=== PATIENT | female | born 1965 | race Caucasian/White ===

== ENCOUNTER 2022-07-04 01:29 | Emergency (ER) | payer OTHER, SELFPAY ==
[2022-07-04] VITALS (10 sets, daily range): BP systolic 114–129; BP diastolic 60–79; PULSE 68–78; RESP 16–36; TEMP 36.5; O2SAT 96–98; BMI 32.1
--- NOTE | 2022-07-04 01:43 | ED_ITS ---
HPI - Chest Pain General Chief Complaint: Chest Pain Stated Complaint: CHEST PAIN Time Seen by Provider: 07/04/22 01:35 Source: patient Mode of arrival: Ambulatory Limitations: no limitations History of Present Illness HPI narrative: This is a 56-year-old female with complaint of chest pain which he describes as substernal without any radiation. States it woke her up from sleep about 12:45 a.m. patient denies any radiation, she does not have any symptoms in her neck, back arm or abdomen. She states she would similar symptoms in 2020 was told it was a panic attack she did follow-up with Cardiology and had a stress test, and echo through [facility] which were negative. Patient states she had been given sublingual nitro so at 1:00 a.m. and 1:10 a.m. she took sublingual nitro which did not change her symptoms. She denies shortness of breath, no diaphoresis, she states her heart rate she got was a little high at home. She denies any swelling of her extremities. No lightheadedness or pas sing out. No nausea, no vomiting, no diarrhea constipation, no urinary symptoms. She states at max it was 6/10 is currently 4/10. Nothing seems to worsen or alleviate it. She does not appreciate any funny taste in the back of her mouth. Patient states she is on bio identical hormones including testosterone, progesterone and estrogen as well as a thyroid supplement. She denies any prior surgeries except for vein surgery which she describes and sounds similar to vein stripping. No tobacco, occasional alcohol she did have a green Neetu a last night. No illicit. She denies any cardiac, embolic or vascular history in her family. Her primary care was at [facility] she is currently transitioning to a new primary care and has an appointment the end of the month. She presents with her . She states pain is still present. Related Data Allergies Allergy/AdvReac Type Severity Reaction Status Date / Time butorphanol [From Stadol] Allergy Unknown Verified 07/04/22 02:15 diazepam [From Valium] Allergy Unknown Verified 07/04/22 02:16 Review of Systems Review of Systems ROS Unobtainable: All systems reviewed & are unremarkable except as noted in HPI and below Patient History Social History Smoking Status: Never smoker Exam Narrative Exam Narrative: GENERAL: Alert and oriented x three, well-nourished female in mild distress. HEENT: Head normocephalic, atraumatic, EOMI, pupils reactive, face symmetric, moist mucous membranes NECK: Supple, full range of motion CARDIOVASCULAR: Regular rate and rhythm without murmurs, rubs or gallops. No JVD. No swelling bilateral lower extremities. Pulses equal bilateral upper extremities. No reproducible chest pain with palpation. RESPIRATORY: Breath sounds equal bilaterally, no wheezes rales or rhonchi. No tachypnea, no accessory muscle use. Speaks in full sentences. ABDOMEN: Soft, nontender. Normoactive bowel sounds all 4 quadrants. No guarding or rebound, rigidity, no mass : No CVA tenderness EXTREMITIES: Normal range of motion, no clubbing or edema. Neurovascularly intact NEUROLOGICAL: Cranial nerves II through XII grossly intact. Moving all extremities SKIN: Warm, dry, no petechiae, no rashes or lesions. Initial Vital Signs Initial Vital Signs: Vital Signs Temperature 97.7 F 07/04/22 01:37 Pulse Rate 78 07/04/22 01:37 Respiratory Rate 18 07/04/22 01:37 Blood Pressure 114/74 07/04/22 01:37 Pulse Oximetry 97 07/04/22 01:37 Oxygen Delivery Method 07/04/22 01:37 Scores HEART Score Heart Score history: Moderately Suspicious Heart Score EKG: Non-Specific repolarization disturbance Heart Score Age: 45-64 years old Heart Score risk factors: No known risk factors Heart Score troponin: < or = to normal limit Heart Score Total: 3 Course Orders Ordered: ED Orders 07/04/22 01:45 Complete Blood Count AUTO DIFF Stat Comprehensive Metabolic Panel Stat D Dimer Stat Lipase Stat NT-proBNP (BNP-Adult 18+) Stat Partial Thromboplastin Time Stat Prothrombin Time INR Stat Troponin & CK Cardiac Panel Stat 07/04/22 02:00 XR chest 1V Stat 07/04/22 02:32 Covid-19 + FLU A/B + RSV - PCR Stat 07/04/22 03:45 Trop I [Troponin I] Stat Discontinued Medications Al Hydrox/Mg Hydrox/Simethicone 20 ml/ Lidocaine HCl 15 ml 0 ml PO NOW ONE Stop: 07/04/22 02:01 Last Admin: 07/04/22 02:09 Dose: 35 ml Documented By: KRISTYN Ketorolac Tromethamine (Ketorolac 30 Mg/Ml Vial) 15 mg IV NOW ONE Stop: 07/04/22 03:34 Last Admin: 07/04/22 03:38 Dose: 15 mg Documented By: KRISTYN Reevaluation(s) Reevaluation #1: No improvement in pain after GI cocktail. Patient states nitro had not been helpful. She states she does not typically handle narcotics well, she had stayed all which he states made her hallucinate and vomit. She had Valium at 1 point which she states made her cry uncontrollably. Time: 03:34 Vital Signs Vital signs: Vital Signs - 8 hr 07/04/22 01:37 07/04/22 01:58 07/04/22 02:00 Temperature 97.7 F Pulse Rate 78 72 73 Respiratory Rate 18 26 H 36 H Blood Pressure 114/74 Pulse Oximetry 97 98 97 Oxygen Delivery Method Room Air 07/04/22 03:56 07/04/22 02:03 07/04/22 02:03 Temperature Pulse Rate 70 Respiratory Rate 20 19 Blood Pressure 117/61 Pulse Oximetry 97 Oxygen Delivery Method 07/04/22 02:30 07/04/22 02:31 07/04/22 02:31 Temperature Pulse Rate 68 70 Respiratory Rate 24 18 Blood Pressure 119/64 Pulse Oximetry 98 98 Oxygen Delivery Method 07/04/22 03:00 07/04/22 03:00 07/04/22 03:30 Temperature Pulse Rate 71 Respiratory Rate 28 H Blood Pressure 122/64 129/79 Pulse Oximetry 97 Oxygen Delivery Method 07/04/22 03:30 07/04/22 04:00 07/04/22 04:00 Temperature Pulse Rate 68 69 Respiratory Rate 16 Blood Pressure 122/60 Pulse Oximetry 97 96 Oxygen Delivery Method MDM - Chest Pain Lab Data Result diagrams: 07/04/22 01:45 07/04/22 01:45 Labs: Lab Results 07/04/22 07/04/22 07/04/22 Range/Units 01:45 01:45 01:45 WBC 9.3 (4.5-11.0) X10^3/uL RBC 4.44 (4.0-5.2) X10^6/uL Hgb 13.3 (12.0-16.0) g/dL Hct 40.5 (36-46) % MCV 91.1 (80-100) fL MCH 29.9 (26-34) PG MCHC 32.8 (30-36) % RDW 13.6 (11.6-14.8) % Plt Count 335 (150-400) X10^3/uL Neut % (Auto) 67.1 (50-75) % Lymph % (Auto) 22.6 L (25-40) % Will[place] % (Auto) 9.1 (3-14) % Eos % (Auto) 0.5 L (2-4) % Baso % (Auto) 0.7 (0-2) % Neut # (Auto) 6200 (6626-2137) /uL Lymph # (Auto) 2100 (0875-0118) /uL Willacy # (Auto) 800 (0-900) /uL Eos # (Auto) 0 (0-450) /uL Baso # (Auto) 100 (0-100) /uL PT 12.3 (10.1-12.7) SECONDS INR 1.1 (0.9-1.3) APTT 32 (26-36) SECONDS D-Dimer 372 (<500) ng/ml Sodium 138 (137-145) mmol/L Potassium 4.0 (3.4-5.1) mmol/L Chloride 104 (98-107) mmol/L Carbon Dioxide 24 (22-32) mmol/L BUN 11 (7-17) mg/dL Creatinine 0.86 (0.52-1.04) mg/dL Estimated GFR > 60 (>60) mL/min BUN/Creatinine Ratio 12.8 (6-22) Glucose 110 H (70-100) mg/dL Calcium 8.3 L (8.4-10.2) mg/dL Total Bilirubin 0.6 (0.2-1.3) mg/dL AST 21 (14-36) IU/L ALT 22 (<35) IU/L Alkaline Phosphatase 77 (38-126) U/L Total Creatine Kinase 41 (30-135) U/L CK-MB (CK-2) TNP CK-MB (CK-2) Rel Index TNP Troponin I < 0.012 (0.01-0.034) ng/mL NT-Pro-B Natriuret Pep (<125) pg/mL Total Protein 7.6 (6.3-8.2) g/dL Albumin 4.1 (3.5-5.0) g/dL Globulin 3.5 (1.7-4.1) g/dL Albumin/Globulin Ratio 1.2 (1.0-2.8) Lipase 81 (23-300) U/L SARS-CoV-2 (PCR) (Negative) Influenza A (RT-PCR) (NEGATIVE) Influenza B (RT-PCR) (NEGATIVE) RSV (PCR) (Negative) 07/04/22 07/04/22 07/04/22 Range/Units 01:45 02:32 03:45 WBC (4.5-11.0) X10^3/uL RBC (4.0-5.2) X10^6/uL Hgb (12.0-16.0) g/dL Hct (36-46) % MCV (80-100) fL MCH (26-34) PG MCHC (30-36) % RDW (11.6-14.8) % Plt Count (150-400) X10^3/uL Neut % (Auto) (50-75) % Lymph % (Auto) (25-40) % Willacy % (Auto) (3-14) % Eos % (Auto) (2-4) % Baso % (Auto) (0-2) % Neut # (Auto) (0229-5882) /uL Lymph # (Auto) (5305-3918) /uL Willacy # (Auto) (0-900) /uL Eos # (Auto) (0-450) /uL Baso # (Auto) (0-100) /uL PT (10.1-12.7) SECONDS INR (0.9-1.3) APTT (26-36) SECONDS D-Dimer (<500) ng/ml Sodium (137-145) mmol/L Potassium (3.4-5.1) mmol/L Chloride (98-107) mmol/L Carbon Dioxide (22-32) mmol/L BUN (7-17) mg/dL Creatinine (0.52-1.04) mg/dL Estimated GFR (>60) mL/min BUN/Creatinine Ratio (6-22) Glucose (70-100) mg/dL Calcium (8.4-10.2) mg/dL Total Bilirubin (0.2-1.3) mg/dL AST (14-36) IU/L ALT (<35) IU/L Alkaline Phosphatase (38-126) U/L Total Creatine Kinase (30-135) U/L CK-MB (CK-2) CK-MB (CK-2) Rel Index Troponin I < 0.012 (0.01-0.034) ng/mL NT-Pro-B Natriuret Pep 41 (<125) pg/mL Total Protein (6.3-8.2) g/dL Albumin (3.5-5.0) g/dL Globulin (1.7-4.1) g/dL Albumin/Globulin Ratio (1.0-2.8) Lipase (23-300) U/L SARS-CoV-2 (PCR) Negative (Negative) Influenza A (RT-PCR) Flu a negative (NEGATIVE) Influenza B (RT-PCR) Flu b negative (NEGATIVE) RSV (PCR) Negative (Negative) Imaging Data Chest x-ray: Radiologist's Impression: no acute cardiopulmonary disease demonstrated. ECG Data Attestation: I personally reviewed and interpreted this ECG as follows: Prior ECG tracings: not available for review Interpretation: Sinus rhythm rate of 76 [place] 158 QRS is [address]TC [address] No acute [address] elevation depression noted. Patient does not have prior for comparison. EKG2. Sinus rhythm rate of 66 [place] 172 QRS is 76 and QTC of 429. No acute ST elevation. [facility] Narrative Medical decision making narrative: This is a 56-year-old female who presents with complaint substernal chest pain that awoke her from sleep. Patient states she tried nitro sublingual x2 with no improvement, she had this left over after having similar episode in 2019, she had stress testing and TT E at [facility] which was negative according to the patient. Patient chest x-ray is negative, CBC, CMP lipase and initial troponin are all negative. Patient is on estrogen D-dimer was included and is negative at 372, patient is not tachycardic, her oxygen is normal making pulmonary emboli much less likely. COVID/influenza and RSV are negative. Patient had GI cocktail which was not helpful, she notes that she does not tolerate narcotics or benzodiazepines well at all. Dose of Toradol was ordered. Repeat troponin is negative. EKG does not show dynamic changes. Patient's symptoms improved significantly after Toradol. Offered observation to the patient, she politely declines but discussed I would recommend having short-term follow-up. She has established with a new primary care but does not recall their name. I asked that they call 1st thing in the morning or to call the cardiology team she was following with in 2019 for further evaluation and workup. We discussed return precautions all questions answered. Discharge Plan Departure Patient Disposition: Home Clinical Impression: Chest pain Instructions: DI for Chest Pain Activity Restrictions/Additional Instructions: Please follow-up with your primary care team to discuss repeat stress testing or additional workup. Please return for new or worsening symptoms, increasing chest pain, shortness of breath, passing out, new swelling in your extremities, coughing up blood, black or bloody stools, persistent vomiting or other new or concerning changes. Stand Alone Forms: Patient Portal/API
--- NOTE | 2022-07-04 02:00 | DI.RAD.S_ITS ---
PROCEDURE: XR CHEST 1V INDICATIONS: chest pain TECHNIQUE: One view of the chest was acquired. COMPARISON: None. FINDINGS: Surgical changes and devices: None. Lungs and pleura: Lungs are clear. No pleural effusions or pneumothorax. Mediastinum: Mediastinal contours appear normal. Heart size is normal. Bones and chest wall: No suspicious bony lesions. Overlying soft tissues appear unremarkable. IMPRESSION: No acute cardiopulmonary abnormality. This report is concordant with the overnight preliminary interpretation. Dictated by: Reg Moses M.D. on 07/04/2022 at 8:01 Approved by: Reg Moses M.D. on 07/04/2022 at 8:01
[2022-07-04] MEDS: MAG HYDROX/ALUMINUM/SIMETH SUS 20 ML, LIDOCAINE VISCOUS 2% 15 ML PO (02:09)
[2022-07-04 02:13] LABS: Add Manual Diff / Slide Review NO; Basophils Absolute Auto 100 /uL (0-100); Basophils Percent Auto 0.7 % (0-2); Eosinophils Absolute Auto 0 /uL (0-450); Eosinophils Percent Auto 0.5 % (2-4); Hematocrit 40.5 % (36-46); Hemoglobin 13.3 g/dL (12.0-16.0); INR 1.1 (0.9-1.3); Lymphocytes Absolute Auto 2100 /uL (1100-4500); Lymphocytes Percent Auto 22.6 % (25-40); Mean Corpuscular HGB Conc 32.8 % (30-36); Mean Corpuscular Hemoglobin 29.9 PG (26-34); Mean Corpuscular Volume 91.1 fL (80-100); Monocytes Absolute Auto 800 /uL (0-900); Monocytes Percent Auto 9.1 % (3-14); Neutrophils Absolute Auto 6200 /uL (1500-7000); Neutrophils Percent Auto 67.1 % (50-75); Platelet Count 335 X10^3/uL (150-400); Prothrombin Time 12.3 SECONDS (10.1-12.7); Red Blood Cell Count 4.44 X10^6/uL (4.0-5.2); Red Cell Distribution Width 13.6 % (11.6-14.8); White Blood Cell Count 9.3 X10^3/uL (4.5-11.0)
[2022-07-04 02:15] LABS: D Dimer 372 ng/ml (<500)
[2022-07-04 02:16] LABS: PTT Partial Thromboplastin Tim 32 SECONDS (26-36)
[2022-07-04 02:18] LABS: Alanine Aminotransferase 22 IU/L (<35); Albumin 4.1 g/dL (3.5-5.0); Albumin Globulin Ratio 1.2 (1.0-2.8); Alkaline Phosphatase 77 U/L (38-126); Aspartate Aminotransferase 21 IU/L (14-36); BUN Creatinine Ratio 12.8 (6-22); Bilirubin Total 0.6 mg/dL (0.2-1.3); Blood Urea Nitrogen 11 mg/dL (7-17); Calcium 8.3 mg/dL (8.4-10.2); Carbon Dioxide 24 mmol/L (22-32); Chloride 104 mmol/L (98-107); Creatine Kinase 41 U/L (30-135); Estimated Glomerular Filt Rate > 60 mL/min (>60); Globulin 3.5 g/dL (1.7-4.1); Glucose 110 mg/dL (70-100); HEMOLYSIS < 15 (0-50); Lipase 81 U/L (23-300); Sodium 138 mmol/L (137-145); Total Protein 7.6 g/dL (6.3-8.2)
[2022-07-04 02:27] LABS: NT-proBNP (BNP-Adult 18+) 41 pg/mL (<125)
[2022-07-04 02:30] LABS: Troponin I < 0.012 ng/mL (0.01-0.034)
[2022-07-04 03:18] LABS: Influenza A - CEPHEID Flu A NEGATIVE (NEGATIVE); Influenza B - CEPHEID Flu B NEGATIVE (NEGATIVE); Respiratory Syncytial Virus Negative (Negative)
[2022-07-04 03:36] LABS: COVID-19 CEPHEID 4-PLEX PCR Negative (Negative)
[2022-07-04] MEDS: KETOROLAC 30 MG/ML VIAL 15 MG IV (03:38)
[2022-07-04 04:14] LABS: Troponin I < 0.012 ng/mL (0.01-0.034)
== END 2022-07-04 04:40 | disposition home or self-care (01) ==
PROVIDERS: Emergency Provider Emergency Medicine
DX: R07.9 Chest pain, unspecified (principal); Z20.822 Contact with and (suspected) exposure to COVID-19
CPT/HCPCS: 0241U; 36415; 71045; 80053; 82550; 83690; 83880; 84484; 85025; 85379; 85610; 85730; 93005; 99284; J1885

== ENCOUNTER 2022-07-04 12:37 | Observation (INO) | payer OTHER, SELFPAY ==
[2022-07-04] VITALS (9 sets, daily range): BP systolic 118–159; BP diastolic 54–93; PULSE 52–69; RESP 16–29; TEMP 36.3–36.7; O2SAT 96–100; BMI 31.9
--- NOTE | 2022-07-04 13:32 | DI.RAD.S_ITS ---
PROCEDURE: XR CHEST 1V INDICATIONS: chest pain TECHNIQUE: One view of the chest was acquired. COMPARISON: [facility], , XR CHEST 1V, 07/04/2022, 2:05. FINDINGS: Surgical changes and devices: None. Lungs and pleura: On this semiupright portable chest examination, no large pneumothorax or large pleural effusions are seen. No focal infiltrates are seen. Mediastinum: Mediastinal contours appear normal. Heart size is normal. Bones and chest wall: No suspicious bony lesions. Overlying soft tissues appear unremarkable. IMPRESSION: Portable chest study within normal limits. Dictated by: Apolinar Hansen M.D. on 07/04/2022 at 12:57 Approved by: Apolinar Hansen M.D. on 07/04/2022 at 12:58
[2022-07-04 14:01] LABS: Add Manual Diff / Slide Review NO; Basophils Absolute Auto 100 /uL (0-100); Basophils Percent Auto 0.5 % (0-2); Eosinophils Absolute Auto 0 /uL (0-450); Eosinophils Percent Auto 0.1 % (2-4); Hematocrit 39.2 % (36-46); Hemoglobin 13.2 g/dL (12.0-16.0); Lymphocytes Absolute Auto 2000 /uL (1100-4500); Lymphocytes Percent Auto 18.9 % (25-40); Mean Corpuscular HGB Conc 33.6 % (30-36); Mean Corpuscular Hemoglobin 30.2 PG (26-34); Mean Corpuscular Volume 89.9 fL (80-100); Monocytes Absolute Auto 700 /uL (0-900); Monocytes Percent Auto 6.9 % (3-14); Neutrophils Absolute Auto 7900 /uL (1500-7000); Neutrophils Percent Auto 73.6 % (50-75); Platelet Count 321 X10^3/uL (150-400); Red Blood Cell Count 4.36 X10^6/uL (4.0-5.2); Red Cell Distribution Width 13.8 % (11.6-14.8); White Blood Cell Count 10.8 X10^3/uL (4.5-11.0)
[2022-07-04] MEDS: ONDANSETRON 4 MG/2 ML INJ IV ×2 (14:01→17:20)
[2022-07-04] MEDS: PANTOPRAZOLE 40 MG VIAL IV (14:01)
[2022-07-04 14:06] LABS: INR 1.1 (0.9-1.3); Prothrombin Time 12.7 SECONDS (10.1-12.7)
[2022-07-04 14:09] LABS: PTT Partial Thromboplastin Tim 31 SECONDS (26-36)
[2022-07-04 15:13] LABS: Alanine Aminotransferase 22 IU/L (<35); Albumin 4.2 g/dL (3.5-5.0); Albumin Globulin Ratio 1.2 (1.0-2.8); Alkaline Phosphatase 81 U/L (38-126); Aspartate Aminotransferase 22 IU/L (14-36); BUN Creatinine Ratio 12.2 (6-22); Bilirubin Total 0.5 mg/dL (0.2-1.3); Blood Urea Nitrogen 9 mg/dL (7-17); Calcium 8.1 mg/dL (8.4-10.2); Carbon Dioxide 24 mmol/L (22-32); Chloride 102 mmol/L (98-107); Creatine Kinase 40 U/L (30-135); Estimated Glomerular Filt Rate > 60 mL/min (>60); Globulin 3.6 g/dL (1.7-4.1); Glucose 92 mg/dL (70-100); Lipase 65 U/L (23-300); Magnesium 2.2 mg/dL (1.6-2.3); Potassium 4.2 mmol/L (3.4-5.1); Sodium 136 mmol/L (137-145); Total Protein 7.8 g/dL (6.3-8.2)
[2022-07-04 15:28] LABS: HEMOLYSIS < 15 (0-50); Troponin I < 0.012 ng/mL (0.01-0.034)
--- NOTE | 2022-07-04 16:52 | DI.CT.S_ITS ---
PROCEDURE: CT ANGIO CHEST ABDOMEN PELVIS INDICATIONS: severe chest pain TECHNIQUE: Precontrast 5 mm thick sections acquired from the lung apices to the iliac crests. After the administration of intravenous contrast, 2.5 mm thick sections again acquired from the lung apices to the iliac crests. Maximum intensity projection (MIP) oblique sagittal and coronal reformats were then acquired. For radiation dose reduction, the following was used: automated exposure control. COMPARISON: [facility], CR, XR CHEST 1V, 07/04/2022, 2:05. [facility], CR, XR CHEST 1V, 07/04/2022, 13:41. FINDINGS: Image quality: Excellent. VASCULATURE: Heart is normal in size. No filling defect is seen within the central pulmonary arteries. The ascending thoracic aorta, aortic arch, and descending thoracic aorta are normal in size. The left common carotid artery and brachiocephalic trunk share a common origin at the aortic arch, a normal anatomic variant. The proximal portions of the arch vessels are patent. No aortic dissection or intramural hematoma. The abdominal aorta is normal in size without calcified atherosclerotic plaque. The celiac trunk, superior and inferior mesenteric arteries, and the bilateral renal arteries are patent. The bilateral common, external, and internal iliac arteries are patent. The visualized portions of the bilateral common, superficial, and deep femoral arteries are patent. CHEST: Lungs and pleura: No acute airspace opacities. No pleural effusions or pneumothorax. Central and peripheral airways are patent and normal in caliber. Mediastinum: Heart size is normal. No pericardial effusion. No mediastinal or hilar adenopathy by size criteria. Central pulmonary arteries are normal in size. Esophagus is normal in caliber. Small hiatal hernias. Bones and chest wall: No axillary adenopathy by size criteria. Thyroid is unremarkable. No suspicious bony lesions. No vertebral body compression fractures. ABDOMEN: Vasculature: Celiac trunk and mesenteric arteries are patent. Renal arteries are also patent. Solid organs: Liver is normal in size and enhancement. Gallbladder is filled with gallstones and mildly hyperdense sludge. Possible trace pericholecystic fluid. No surrounding inflammatory fat stranding is seen. Biliary system is non dilated. Pancreas enhances normally. Spleen is normal in size and enhancement. No adrenal nodules. Both kidneys are normal in size and enhancement, without hydronephrosis. Bilateral peripelvic renal cysts. Contrast material is seen in the renal collecting systems bilaterally. Peritoneum and bowel: No free fluid or air. Small hiatal hernia. Bowel loops are normal in caliber and wall thickness. Normal appendix. Nodes and vessels: No retroperitoneal or mesenteric adenopathy by size criteria. Inferior vena cava is normal in morphology. Miscellaneous: Tiny fat containing periumbilical hernia. PELVIS: Genitourinary: Bladder wall thickness is normal. Miscellaneous: No inguinal hernias or adenopathy. No ventral hernias. Bones: No suspicious bony lesions. No vertebral body compression fractures. Limbus vertebra is noted at L3. IMPRESSION: 1. No acute aortic dissection or acute vascular abnormality identified. 2. Mildly dilated gallbladder filled with gallstones and biliary sludge. Possible trace pericholecystic fluid. Recommend correlation with clinical and laboratory findings to exclude acute cholecystitis. Gallbladder ultrasound could be performed for further evaluation if indicated clinically. 3. Otherwise, no acute abnormality is seen. Approved by: Francesco Rollins M.D. on 07/04/2022 at 17:43
--- NOTE | 2022-07-04 17:11 | ED_ITS ---
HPI - Chest Pain <Alana Chavez DO - Last Filed: 07/09/22 07:08> General Chief Complaint: Chest Pain Stated Complaint: chest pain, here last night, nausea Time Seen by Provider: 07/04/22 13:35 Source: patient and family Mode of arrival: Ambulatory Limitations: no limitations History of Present Illness HPI narrative: Patient is a 56-year-old female without past medical history presenting for the 2nd time told hours with significant chest pain. She was seen evaluated her earlier today at around 1:00 a.m. for the same. She 2- troponins heart score was low she did have a previous workup at the [facility] where she was told it was negative. She received Toradol during her ED visit she did receive some pain relief. However when she got home she went to sleep and pain started again. It is in the center of her chest nonradiating. It does not feel like her acid reflux. Not able to eat or drink very much feeling nauseous. No significant shortness of breath. She denies any abdominal pain epigastric pain or other symptoms. No palpitations dizziness lightheadedness or syncope. Related Data Home Medications Medication Instructions Recorded Confirmed cholecalciferol (vitamin D3) 50 50 mcg PO DAILY 07/04/22 07/04/22 mcg (2,000 unit) capsule (Vitamin D3) progesterone micronized 200 mg 200 mg BEDTIME 07/04/22 07/04/22 capsule semaglutide (weight loss) 0.25 0.2 mg SUBCUT QWEEK 07/04/22 07/04/22 mg/0.5 mL subcutaneous pen injector Previous Rx's Medication Instructions Recorded ibuprofen 600 mg tablet 600 mg PO Q6H PRN Fever/Mild Pain 07/05/22 (1-3) #30 tabs oxycodone 5 mg tablet 5 mg PO Q3H PRN Pain, Moderate 07/05/22 (4-6) #10 tabs Allergies Allergy/AdvReac Type Severity Reaction Status Date / Time butorphanol [From Stadol] Allergy Severe Hallucinati Verified 07/05/22 12:52 ng diazepam [From Valium] AdvReac Intermediate Verified 07/05/22 12:51 Review of Systems <DO Bryan Anthony Last Filed: 07/09/22 07:08> Review of Systems ROS Unobtainable: All systems reviewed & are unremarkable except as noted in HPI and below Patient History <Alana Chavez DO - Last Filed: 07/09/22 07:08> Medical History (Updated 07/05/22 @ 12:54 by Neha Wilder RN) Anxiety Depression Venous (peripheral) insufficiency Social History household members: significant other Smoking Status: Never smoker alcohol intake: current Smoking Status: Never smoker Substance Use Type: does not use Exam <Alana Chavez DO - Last Filed: 07/09/22 07:08> Initial Vital Signs Initial Vital Signs: Vital Signs Temperature 98.1 F 07/04/22 13:26 Pulse Rate 65 07/04/22 13:26 Respiratory Rate 18 07/04/22 13:26 Blood Pressure 159/88 H 07/04/22 13:26 Pulse Oximetry 98 07/04/22 13:26 Oxygen Delivery Method 07/04/22 13:26 GENERAL: Alert 56-year-old female appears uncomfortable HEENT: Head atraumatic,EOMI, pupils reactive, face symmetric, moist mucous membranes CARDIOVASCULAR: Regular rate and rhythm without murmurs, rubs or gallops. Pain and chest is nonreproducible to palpation RESPIRATORY: Breath sounds equal bilaterally, no wheezes rales or rhonchi. ABDOMEN: Soft, nontender. Normoactive bowel sounds all 4 quadrants. No guarding or rebound. No right upper quadrant pain no epigastric pain EXTREMITIES: Normal range of motion, no clubbing or edema. Neurovascularly intact NEUROLOGICAL: Alert and oriented x4.Normal gait and speech. SKIN: Warm, dry, no laceration, no petechiae, no rashes or lesions. <Anneliese Ruff DO - Last Filed: 07/06/22 06:56> Initial Vital Signs Initial Vital Signs: Vital Signs Temperature 98.1 F 07/04/22 13:26 Pulse Rate 65 07/04/22 13:26 Respiratory Rate 18 07/04/22 13:26 Blood Pressure 159/88 H 07/04/22 13:26 Pulse Oximetry 98 07/04/22 13:26 Oxygen Delivery Method 07/04/22 13:26 Course <DO Bryan Anthony Last Filed: 07/09/22 07:08> Orders Ordered: Discontinued Medications Acetaminophen (Acetaminophen 325 Mg Tablet) 650 mg PO Q6H [facility] Bupivacaine HCl/Epinephrine Bitart (Bupivacaine 0.5% W/ Epi (Pf) 30 Ml Vial) 30 ml INJ NOW ONE Stop: 07/05/22 13:15 Last Admin: 07/05/22 13:16 Dose: 10 ml Documented By: PF Enoxaparin Sodium (Enoxaparin 40 Mg/0.4 Ml Syringe) 40 mg SUBCUT DAILY [facility] Enoxaparin Sodium (Enoxaparin 30 Mg/0.3 Ml Syringe) 30 mg SUBCUT DAILY [facility] Fentanyl (Fentanyl 100 Mcg/2 Ml Inj) 0 mcg IV Q5M PRN PRN Reason: Pain, Moderate (4-6) Heparin Sodium (Porcine) (Heparin 5,000 Unit/Ml Vial) 5,000 unit SUBCUT BID [facility] Last Admin: 07/05/22 08:36 Dose: 5,000 unit Documented By: Hydromorphone HCl (Hydromorphone 2 Mg Inj) 0 mg IV Q5M PRN PRN Reason: Pain, Moderate (4-6) Sodium Chloride (Normal Saline 0.9%) 1,000 mls @ 1,000 mls/hr IV BOLUS ONE Stop: 07/04/22 18:28 Last Infusion: 07/04/22 18:38 Dose: 0 mls/hr Documented By: Admin: 07/04/22 17:31 Dose: 1,000 mls/hr Documented By: RL Lactated Ringer's (Lactated Ringers) 1,000 mls @ 100 mls/hr IV CONT [facility] Last Admin: 07/05/22 14:30 Dose: 100 mls/hr Documented By: Infusion: 07/05/22 14:30 Dose: 100 mls/hr Documented By: Admin: 07/05/22 12:45 Dose: 100 mls/hr Documented By: Infusion: 07/05/22 12:45 Dose: 100 mls/hr Documented By: Admin: 07/05/22 08:39 Dose: 100 mls/hr Documented By: Infusion: 07/05/22 08:36 Dose: 0 mls/hr Documented By: Admin: 07/04/22 22:03 Dose: 100 mls/hr Documented By: JOSE Cefazolin Sodium/Dextrose (Ancef) 100 mls @ 200 mls/hr IV NOW ONE Stop: 07/05/22 13:45 Last Infusion: 07/05/22 13:05 Dose: 0 mls/hr Documented By: Admin: 07/05/22 13:00 Dose: 200 mls/hr Documented By: Ibuprofen (Ibuprofen 400 Mg Tablet) 400 mg PO Q4H RUBY Ibuprofen (Ibuprofen 600 Mg Tablet) 600 mg PO Q6H PRN PRN Reason: Fever/Mild Pain (1-3) Last Admin: 07/05/22 06:00 Dose: 600 mg Documented By: Admin: 07/04/22 22:04 Dose: 600 mg Documented By: JOSE Ketorolac Tromethamine (Ketorolac 30 Mg/Ml Vial) 15 mg IV NOW ONE Stop: 07/04/22 18:02 Last Admin: 07/04/22 18:08 Dose: 15 mg Documented By: FLORIAN Ketorolac Tromethamine (Ketorolac 30 Mg/Ml Vial) 15 mg IV NOW ONE Stop: 07/05/22 11:18 Last Admin: 07/05/22 11:30 Dose: 15 mg Documented By: Magnesium Hydroxide (Magnesium Hydroxide 30 Ml Udc) 30 ml PO DAILY PRN PRN Reason: Constipation Morphine Sulfate (Morphine 2 Mg/Ml Inj) 2 mg IV NOW ONE Stop: 07/04/22 16:53 Last Admin: 07/04/22 17:20 Dose: 2 mg Documented By: FLORIAN Naloxone HCl (Naloxone 0.4 Mg/Ml Vial) 0.2 mg IV Q2MIN PRN PRN Reason: Opiate Reversal Ondansetron HCl (Ondansetron 4 Mg/2 Ml Inj) 4 mg IV NOW ONE Stop: 07/04/22 13:53 Last Admin: 07/04/22 14:01 Dose: 4 mg Documented By: CHRISTIANA Ondansetron HCl (Ondansetron 4 Mg/2 Ml Inj) 4 mg IV NOW ONE Stop: 07/04/22 16:53 Last Admin: 07/04/22 17:20 Dose: 4 mg Documented By: FLORIAN Ondansetron HCl (Ondansetron 4 Mg/2 Ml Inj) 4 mg IV NOW PRN PRN Reason: Nausea And Vomiting Oxycodone HCl (Oxycodone Ir 5 Mg Tablet) 5 mg PO Q3H PRN PRN Reason: Pain, Moderate (4-6) Last Admin: 07/05/22 08:40 Dose: 5 mg Documented By: Admin: 07/05/22 03:06 Dose: 5 mg Documented By: Admin: 07/04/22 23:48 Dose: 5 mg Documented By: OW Pantoprazole Sodium (Pantoprazole 40 Mg Vial) 40 mg IV NOW ONE Stop: 07/04/22 13:53 Last Admin: 07/04/22 14:01 Dose: 40 mg Documented By: CHRISTIANA Pantoprazole Sodium (Pantoprazole Dr 20 Mg Tablet) 20 mg PO 0600 [facility] Last Admin: 07/05/22 05:59 Dose: 20 mg Documented By: OW Vital Signs Vital signs: Vital Signs - 8 hr 07/04/22 13:26 07/04/22 15:04 07/04/22 15:13 Temperature 98.1 F Pulse Rate 65 68 Respiratory Rate 18 Blood Pressure 159/88 H 157/68 H Pulse Oximetry 98 99 Oxygen Delivery Method Room Air 07/04/22 15:13 07/04/22 15:30 07/04/22 15:30 Temperature Pulse Rate 56 L 52 L Respiratory Rate 29 H 16 Blood Pressure 157/81 H Pulse Oximetry 100 100 Oxygen Delivery Method 07/04/22 16:00 07/04/22 17:30 07/04/22 18:30 Temperature Pulse Rate 55 L 69 68 Respiratory Rate 20 21 20 Blood Pressure 146/68 H 118/93 H 132/65 Pulse Oximetry 100 99 99 Oxygen Delivery Method Room Air Room Air <Anneliese Ruff, - Last Filed: 07/06/22 06:56> Orders Ordered: Discontinued Medications Acetaminophen (Acetaminophen 325 Mg Tablet) 650 mg PO Q6H [facility] Bupivacaine HCl/Epinephrine Bitart (Bupivacaine 0.5% W/ Epi (Pf) 30 Ml Vial) 30 ml INJ NOW ONE Stop: 07/05/22 13:15 Last Admin: 07/05/22 13:16 Dose: 10 ml Documented By: PF Enoxaparin Sodium (Enoxaparin 40 Mg/0.4 Ml Syringe) 40 mg SUBCUT DAILY [facility] Enoxaparin Sodium (Enoxaparin 30 Mg/0.3 Ml Syringe) 30 mg SUBCUT DAILY [facility] Fentanyl (Fentanyl 100 Mcg/2 Ml Inj) 0 mcg IV Q5M PRN PRN Reason: Pain, Moderate (4-6) Heparin Sodium (Porcine) (Heparin 5,000 Unit/Ml Vial) 5,000 unit SUBCUT BID RUBY Last Admin: 07/05/22 08:36 Dose: 5,000 unit Documented By: Hydromorphone HCl (Hydromorphone 2 Mg Inj) 0 mg IV Q5M PRN PRN Reason: Pain, Moderate (4-6) Sodium Chloride (Normal Saline 0.9%) 1,000 mls @ 1,000 mls/hr IV BOLUS ONE Stop: 07/04/22 18:28 Last Infusion: 07/04/22 18:38 Dose: 0 mls/hr Documented By: Admin: 07/04/22 17:31 Dose: 1,000 mls/hr Documented By: RL Lactated Ringer's (Lactated Ringers) 1,000 mls @ 100 mls/hr IV CONT RUBY Last Admin: 07/05/22 14:30 Dose: 100 mls/hr Documented By: Infusion: 07/05/22 14:30 Dose: 100 mls/hr Documented By: Admin: 07/05/22 12:45 Dose: 100 mls/hr Documented By: Infusion: 07/05/22 12:45 Dose: 100 mls/hr Documented By: Admin: 07/05/22 08:39 Dose: 100 mls/hr Documented By: Infusion: 07/05/22 08:36 Dose: 0 mls/hr Documented By: Admin: 07/04/22 22:03 Dose: 100 mls/hr Documented By: JOSE Cefazolin Sodium/Dextrose (Ancef) 100 mls @ 200 mls/hr IV NOW ONE Stop: 07/05/22 13:45 Last Infusion: 07/05/22 13:05 Dose: 0 mls/hr Documented By: Admin: 07/05/22 13:00 Dose: 200 mls/hr Documented By: Ibuprofen (Ibuprofen 400 Mg Tablet) 400 mg PO Q4H [facility] Ibuprofen (Ibuprofen 600 Mg Tablet) 600 mg PO Q6H PRN PRN Reason: Fever/Mild Pain (1-3) Last Admin: 07/05/22 06:00 Dose: 600 mg Documented By: Admin: 07/04/22 22:04 Dose: 600 mg Documented By: JOSE Ketorolac Tromethamine (Ketorolac 30 Mg/Ml Vial) 15 mg IV NOW ONE Stop: 07/04/22 18:02 Last Admin: 07/04/22 18:08 Dose: 15 mg Documented By: FLORIAN Ketorolac Tromethamine (Ketorolac 30 Mg/Ml Vial) 15 mg IV NOW ONE Stop: 07/05/22 11:18 Last Admin: 07/05/22 11:30 Dose: 15 mg Documented By: Magnesium Hydroxide (Magnesium Hydroxide 30 Ml Udc) 30 ml PO DAILY PRN PRN Reason: Constipation Morphine Sulfate (Morphine 2 Mg/Ml Inj) 2 mg IV NOW ONE Stop: 07/04/22 16:53 Last Admin: 07/04/22 17:20 Dose: 2 mg Documented By: FLORIAN Naloxone HCl (Naloxone 0.4 Mg/Ml Vial) 0.2 mg IV Q2MIN PRN PRN Reason: Opiate Reversal Ondansetron HCl (Ondansetron 4 Mg/2 Ml Inj) 4 mg IV NOW ONE Stop: 07/04/22 13:53 Last Admin: 07/04/22 14:01 Dose: 4 mg Documented By: CHRISTIANA Ondansetron HCl (Ondansetron 4 Mg/2 Ml Inj) 4 mg IV NOW ONE Stop: 07/04/22 16:53 Last Admin: 07/04/22 17:20 Dose: 4 mg Documented By: FLORIAN Ondansetron HCl (Ondansetron 4 Mg/2 Ml Inj) 4 mg IV NOW PRN PRN Reason: Nausea And Vomiting Oxycodone HCl (Oxycodone Ir 5 Mg Tablet) 5 mg PO Q3H PRN PRN Reason: Pain, Moderate (4-6) Last Admin: 07/05/22 08:40 Dose: 5 mg Documented By: Admin: 07/05/22 03:06 Dose: 5 mg Documented By: Admin: 07/04/22 23:48 Dose: 5 mg Documented By: JOSE Pantoprazole Sodium (Pantoprazole 40 Mg Vial) 40 mg IV NOW ONE Stop: 07/04/22 13:53 Last Admin: 07/04/22 14:01 Dose: 40 mg Documented By: CHRISTIANA Pantoprazole Sodium (Pantoprazole Dr 20 Mg Tablet) 20 mg PO 0600 RUBY Last Admin: 07/05/22 05:59 Dose: 20 mg Documented By: JOSE Vital Signs Vital signs: Vital Signs - 8 hr 07/04/22 13:26 07/04/22 15:04 07/04/22 15:13 Temperature 98.1 F Pulse Rate 65 68 Respiratory Rate 18 Blood Pressure 159/88 H 157/68 H Pulse Oximetry 98 99 Oxygen Delivery Method Room Air 07/04/22 15:13 07/04/22 15:30 07/04/22 15:30 Temperature Pulse Rate 56 L 52 L Respiratory Rate 29 H 16 Blood Pressure 157/81 H Pulse Oximetry 100 100 Oxygen Delivery Method 07/04/22 16:00 07/04/22 17:30 07/04/22 18:30 Temperature Pulse Rate 55 L 69 68 Respiratory Rate 20 21 20 Blood Pressure 146/68 H 118/93 H 132/65 Pulse Oximetry 100 99 99 Oxygen Delivery Method Room Air Room Air MDM - Chest Pain <Alana Chavez DO - Last Filed: 07/09/22 07:08> Lab Data Result diagrams: 07/04/22 13:41 07/04/22 13:41 Labs: Lab Results 07/04/22 07/04/22 07/04/22 Range/Units 13:41 13:41 13:41 WBC 10.8 (4.5-11.0) X10^3/uL RBC 4.36 (4.0-5.2) X10^6/uL Hgb 13.2 (12.0-16.0) g/dL Hct 39.2 (36-46) % MCV 89.9 (80-100) fL MCH 30.2 (26-34) PG MCHC 33.6 (30-36) % RDW 13.8 (11.6-14.8) % Plt Count 321 (150-400) X10^3/uL Neut % (Auto) 73.6 (50-75) % Lymph % (Auto) 18.9 L (25-40) % Falls % (Auto) 6.9 (3-14) % Eos % (Auto) 0.1 L (2-4) % Baso % (Auto) 0.5 (0-2) % Neut # (Auto) 7900 H (5250-1787) /uL Lymph # (Auto) 2000 (0863-5272) /uL Falls # (Auto) 700 (0-900) /uL Eos # (Auto) 0 (0-450) /uL Baso # (Auto) 100 (0-100) /uL PT 12.7 (10.1-12.7) SECONDS INR 1.1 (0.9-1.3) APTT 31 (26-36) SECONDS Sodium 136 L (137-145) mmol/L Potassium 4.2 (3.4-5.1) mmol/L Chloride 102 (98-107) mmol/L Carbon Dioxide 24 (22-32) mmol/L BUN 9 (7-17) mg/dL Creatinine 0.74 (0.52-1.04) mg/dL Estimated GFR > 60 (>60) mL/min BUN/Creatinine Ratio 12.2 (6-22) Glucose 92 (70-100) mg/dL Calcium 8.1 L (8.4-10.2) mg/dL Magnesium 2.2 (1.6-2.3) mg/dL Total Bilirubin 0.5 (0.2-1.3) mg/dL AST 22 (14-36) IU/L ALT 22 (<35) IU/L Alkaline Phosphatase 81 (38-126) U/L Total Creatine Kinase 40 (30-135) U/L CK-MB (CK-2) TNP CK-MB (CK-2) Rel Index TNP Troponin I < 0.012 (0.01-0.034) ng/mL Total Protein 7.8 (6.3-8.2) g/dL Albumin 4.2 (3.5-5.0) g/dL Globulin 3.6 (1.7-4.1) g/dL Albumin/Globulin Ratio 1.2 (1.0-2.8) Lipase 65 (23-300) U/L Imaging Data Chest x-ray: Radiologist's Impression: XRay Report Signed Patient: Lola Yanez MR#: [id number] : 1965 Acct:[id number] Age/Sex: 56 / F Date of Service: 07/04/22 Loc: ED Accession Number: [id number] ?? Procedure: XR chest 1V Ordering Provider: Alana Chavez D.O. PROCEDURE:? XR CHEST 1V ? INDICATIONS:? chest pain ? TECHNIQUE:? One view of the chest was acquired.? ? COMPARISON:? [facility], , XR CHEST 1V, 07/04/2022, 2:05. ? FINDINGS:? ? Surgical changes and devices:? None.? ? Lungs and pleura:? On this semiupright portable chest examination, no large pneumothorax or large pleural effusions are seen.? No focal infiltrates are seen.? ? Mediastinum:? Mediastinal contours appear normal.? Heart size is normal.? ? Bones and chest wall:? No suspicious bony lesions.? Overlying soft tissues appear unremarkable.? ? ? IMPRESSION:? Portable chest study within normal limits. ? ? Dictated by: Apolinar Hansen M.D. on 07/04/2022 at 12:57 ? ? Approved by: Apolinar Hansen M.D. on 07/04/2022 at 12:58 ? CT scan - chest: Radiologist's Impression: CT Scan Report Signed Patient: Lola Yanez MR#: [id number] : 1965 Acct:[id number] Age/Sex: 56 / F Date of Service: 07/04/22 Loc: ED Accession Number: [id number] ?? Procedure: CT angio chest abdomen pelvis Ordering Provider: Alana Chavez D.O. PROCEDURE:? CT ANGIO CHEST ABDOMEN PELVIS ? INDICATIONS:? severe chest pain ? TECHNIQUE:? Precontrast 5 mm thick sections acquired from the lung apices to the iliac crests.? After the administration of intravenous contrast, 2.5 mm thick sections again acquired from the lung apices to the iliac crests.? Maximum intensity projection (MIP) oblique sagittal and coronal reformats were then acquired.? For radiation dose reduction, the fol lowing was used:? automated exposure control.? ? COMPARISON:? [facility], CR, XR CHEST 1V, 07/04/2022, 2:05.? [facility], CR, XR CHEST 1V, 07/04/2022, 13:41. ? FINDINGS:? Image quality:? Excellent.? ? VASCULATURE:? Heart is normal in size.? No filling defect is seen within the central pulmonary arteries.? The ascending thoracic aorta, aortic arch, and descending thoracic aorta are normal in size.? The left common carotid artery and brachiocephalic trunk share a common origin at the aortic arch, a normal anatomic variant.? The proximal portions of the arch vessels are patent.? No aortic dissection or intramural hematoma. ? The abdominal aorta is normal in size without calcified atherosclerotic plaque.? The celiac trunk, superior and inferior mesenteric arteries, and the bilateral renal arteries are patent. ? The bilateral common, external, and internal iliac arteries are patent.? The visualized portions of the bilateral common, superficial, and deep femoral arteries are patent. ? CHEST:? Lungs and pleura:? No acute airspace opacities.? No pleural effusions or pneumothorax.? Central and peripheral airways are patent and normal in caliber.? ? Mediastinum:? Heart size is normal.? No pericardial effusion.? No mediastinal or hilar adenopathy by size criteria.? Central pulmonary arteries are normal in size.? Esophagus is normal in caliber.? Small hiatal hernias.? ? Bones and chest wall:? No axillary adenopathy by size criteria.? Thyroid is unremarkable. ?No suspicious bony lesions.? No vertebral body compression fractures.? ? ? ABDOMEN:? Vasculature:? Celiac trunk and mesenteric arteries are patent.? Renal arteries are also patent.? ? Solid organs:? Liver is normal in size and enhancement.? Gallbladder is filled with gallstones and mildly hyperdense sludge.? Possible trace pericholecystic fluid.? No surrounding inflammatory fat stranding is seen.? Biliary system is non dilated.? Pancreas enhances normally.? Spleen is normal in size and enhancement.? No adrenal nodu les.? Both kidneys are normal in size and enhancement, without hydronephrosis.? Bilateral peripelvic renal cysts.? Contrast material is seen in the renal collecting systems bilaterally. ? Peritoneum and bowel:? No free fluid or air.? Small hiatal hernia.? Bowel loops are normal in caliber and wall thickness.? Normal appendix. ? Nodes and vessels:? No retroperitoneal or mesenteric adenopathy by size criteria.? Inferior vena cava is normal in morphology.? ? Miscellaneous:? Tiny fat containing periumbilical hernia. ? ? PELVIS:? Genitourinary:? Bladder wall thickness is normal.? ? Miscellaneous:? No inguinal hernias or adenopathy.? No ventral hernias.? ? Bones:? No suspicious bony lesions.? No vertebral body compression fractures.? Limbus vertebra is noted at L3. ? ? IMPRESSION:? 1. No acute aortic dissection or acute vascular abnormality identified. 2. Mildly dilated gallbladder filled with gallstones and biliary sludge.? Possible trace pericholecystic fluid.? Recommend correlation with clinical and laboratory findings to exclude acute cholecystitis.? Gallbladder ultrasound could be performed for further evaluation if indicated clinically. 3. Otherwise, no acute abnormality is seen. ? Approved by: Francesco Rollins M.D. on 07/04/2022 at 17:43? ECG Data Interpretation: Normal sinus rhythm rate 59 NC interval 158 QRS [address] changes T-wave inversions similar to previous EKGs MDM Narrative Medical decision making narrative: Patient is a 56-year-old female no past medical history presenting with persistent chest pain. Concerning for other etiology possible dissection so CT angio was ordered. Blood work is overall reassuring she continues to have persistent negative troponin no leukocytosis normal bilirubin liver enzymes. CT angio does show cholelithiasis with sludge questionable pericholecystic fluid. She continues to be nontender in her epigastric and right upper quadrant pain. Discontinued have some chest pain. She did receive a little bit of morphine and Toradol which did seem to help. She has no fever leukocytosis suggest sepsis or infection. 1800 Dr. Fermin updated on patient's symptoms test results concern for cholecystitis based on CT. She agrees with an ultrasound. Based on staffing issues may not be able to have surgery over the weekend. Patient signed out to Dr. Ruff for further disposition [] Multiple etiologies for patient's symptoms considered including, but not limited to: Acute coronary syndrome, dissection, pulmonary embolism pneumothorax, cholelithiasis cholecystitis Prior Charts reviewed: Previous ED visits Labs reviewed and interpreted by myself: As above Imaging reviewed: As above Consultations: Surgery Patient's symptoms improved over duration of stay with above-stated therapies. Findings and discharge diagnosis discussed with patient/family followed by verbalization of understanding Return precautions discussed with patient/family whom verbalize understanding of diagnosis and plan <Anneliese Ruff, DO - Last Filed: 07/06/22 06:56> Lab Data Labs: Lab Results 07/04/22 07/04/22 07/04/22 Range/Units 13:41 13:41 13:41 WBC 10.8 (4.5-11.0) X10^3/uL RBC 4.36 (4.0-5.2) X10^6/uL Hgb 13.2 (12.0-16.0) g/dL Hct 39.2 (36-46) % MCV 89.9 (80-100) fL MCH 30.2 (26-34) PG MCHC 33.6 (30-36) % RDW 13.8 (11.6-14.8) % Plt Count 321 (150-400) X10^3/uL Neut % (Auto) 73.6 (50-75) % Lymph % (Auto) 18.9 L (25-40) % Falls % (Auto) 6.9 (3-14) % Eos % (Auto) 0.1 L (2-4) % Baso % (Auto) 0.5 (0-2) % Neut # (Auto) 7900 H (7577-1138) /uL Lymph # (Auto) 2000 (0432-7235) /uL Falls # (Auto) 700 (0-900) /uL Eos # (Auto) 0 (0-450) /uL Baso # (Auto) 100 (0-100) /uL PT 12.7 (10.1-12.7) SECONDS INR 1.1 (0.9-1.3) APTT 31 (26-36) SECONDS Sodium 136 L (137-145) mmol/L Potassium 4.2 (3.4-5.1) mmol/L Chloride 102 (98-107) mmol/L Carbon Dioxide 24 (22-32) mmol/L BUN 9 (7-17) mg/dL Creatinine 0.74 (0.52-1.04) mg/dL Estimated GFR > 60 (>60) mL/min BUN/Creatinine Ratio 12.2 (6-22) Glucose 92 (70-100) mg/dL Calcium 8.1 L (8.4-10.2) mg/dL Magnesium 2.2 (1.6-2.3) mg/dL Total Bilirubin 0.5 (0.2-1.3) mg/dL AST 22 (14-36) IU/L ALT 22 (<35) IU/L Alkaline Phosphatase 81 (38-126) U/L Total Creatine Kinase 40 (30-135) U/L CK-MB (CK-2) TNP CK-MB (CK-2) Rel Index TNP Troponin I < 0.012 (0.01-0.034) ng/mL Total Protein 7.8 (6.3-8.2) g/dL Albumin 4.2 (3.5-5.0) g/dL Globulin 3.6 (1.7-4.1) g/dL Albumin/Globulin Ratio 1.2 (1.0-2.8) Lipase 65 (23-300) U/L [facility] Narrative Medical decision making narrative: Patient is a 56-year-old female no past medical history presenting with persistent chest pain. Concerning for other etiology possible dissection so CT angio was ordered. Blood work is overall reassuring she continues to have persistent negative troponin no leukocytosis normal bilirubin liver enzymes. CT angio does show cholelithiasis with sludge questionable pericholecystic fluid. She continues to be nontender in her epigastric and right upper quadrant pain. Discontinued have some chest pain. She did receive a little bit of morphine and Toradol which did seem to help. She has no fever leukocytosis suggest sepsis or infection. 1800 Dr. Fermin updated on patient's symptoms test results concern for cholecystitis based on CT. She agrees with an ultrasound. Based on staffing issues may not be able to have surgery over the weekend. Patient signed out to Dr. Ruff for further disposition [] Multiple etiologies for patient's symptoms considered including, but not limited to: Acute coronary syndrome, dissection, pulmonary embolism pneumothorax, cholelithiasis cholecystitis Prior Charts reviewed: Previous ED visits Labs reviewed and interpreted by myself: As above Imaging reviewed: As above Consultations: Surgery Patient's symptoms improved over duration of stay with above-stated therapies. Findings and discharge diagnosis discussed with patient/family followed by verbalization of understanding Return precautions discussed with patient/family whom verbalize understanding of diagnosis and plan Elzbieta 07/04/22: Patient signed out to myself while awaiting ultrasound. Patient was actually seen by myself early this morning, repeat cardiac workup is negative CT was obtained showed changes concerning for cholecystitis ultrasound was obtained shows thickening, gallstones as well as a stone in the neck, patient had reported Kaur sign with ultrasound. And states that she was tender on evaluation. She does not have a white count she is been afebrile. Discussed with Dr. Fermin general surgery who accepts for observation feels we can hold off on antibiotics currently. Patient is NPO after midnight. Patient did have a COVID swab at 2:30 a.m. this morning so was not repeated here in the department. Updated patient on findings she feels much relieved to note the cause of her pain and states that the Toradol was helpful. She also had small amount of morphine earlier she states she tolerated well. Discharge Plan Departure Patient Disposition: Admitted as Observation Clinical Impression: Cholelithiasis Admit Date/Time: 07/04/22 19:46 Admit Provider: Silva Fermin
[2022-07-04] MEDS: MORPHINE 2 MG/ML INJ IV (17:20)
[2022-07-04] MEDS: SODIUM CHLORIDE 0.9% 1,000 ML 1000 ML IV (17:31)
--- NOTE | 2022-07-04 17:54 | DI.US.S_ITS ---
PROCEDURE: US ABDOMEN LIMITED INDICATIONS: ruq TECHNIQUE: Real-time focused scanning was performed of the abdomen, with image documentation. COMPARISON: [facility], CT, CT ANGIO CHEST ABDOMEN PELVIS, 07/04/2022, 16:58. FINDINGS: Liver measures 13.6 cm in maximum dimension. Included portions of the liver are normal in echogenicity. Gallbladder contains multiple mild gallstones as well as a 1.3 cm non mobile calculus in the gallbladder neck. Gallbladder wall measures 3.4 mm in thickness. There is trace pericholecystic fluid. Diffuse gallbladder sludge. No significant intrahepatic or extrahepatic biliary ductal dilatation. Common bile duct measures 5 mm in diameter. The included portions of the pancreas are unremarkable. No free fluid is seen in the right upper quadrant. IMPRESSION: Cholelithiasis and gallbladder sludge including a 1.3 cm stone lodged at the gallbladder neck. Mild gallbladder wall thickening and trace pericholecystic fluid are seen. Overall findings are suspicious for acute cholecystitis and clinical correlation is recommended. Approved by: Francesco Rollins M.D. on 07/04/2022 at 19:18
[2022-07-04] MEDS: KETOROLAC 30 MG/ML VIAL 15 MG IV (18:08)
--- NOTE | 2022-07-04 21:29 | PC.ADMIT ---
[email or web address] [place] [address] Admission Note: Pt arrive @ 20:55 in no apparent cardiovascular or respiratory distress. Alert and oriented, independent in the room. Respirations equal even unlabored. VSS, RA. Pt oriented to call light system and bed adjustments. Pt takes semaglutide subq inj weekly on Thursday, willing to skip this week's dose, does not know concentration of medicine but knows she takes 0.2 mg/injection. Takes OTC thyroid support supplement, Dim Detox. Pt takes vitamin K supplement, does not know dosage. Pt has testosterone/estrogen pellets (Bioidentical Hormone Therapy Pellets) inserted in glute, not due to be changed any time soon. ALL OTHER MEDICATIONS ACCURATELY RECORDED IN HOME MEDS. Report given to Birdie ADHIKARI. The patient,Lola Yanez,56 y/o, was given written information regarding hospital policies, unit procedures and contact persons. Patient's smoking status: Never smoker. Vital Signs - 8 hr 07/04/22 15:04 07/04/22 15:13 07/04/22 15:13 Temperature Pulse Rate 68 56 L Respiratory Rate 29 H Blood Pressure 157/68 H Pulse Oximetry 99 100 Oxygen Delivery Method 07/04/22 15:30 07/04/22 15:30 07/04/22 16:00 Temperature Pulse Rate 52 L 55 L Respiratory Rate 16 20 Blood Pressure 157/81 H 146/68 H Pulse Oximetry 100 100 Oxygen Delivery Method 07/04/22 17:30 07/04/22 18:30 07/04/22 20:55 Temperature 97.6 F Pulse Rate 69 68 62 Respiratory Rate 21 20 18 Blood Pressure 118/93 H 132/65 120/67 Pulse Oximetry 99 99 96 Oxygen Delivery Method Room Air Room Air
[2022-07-04] MEDS: LACTATED RINGERS 1,000 ML 100 ML IV (22:03)
[2022-07-04] MEDS: IBUPROFEN 600 MG TABLET PO (22:04)
[2022-07-04] MEDS: OXYCODONE IR 5 MG TABLET PO (23:48)
[2022-07-05] VITALS (10 sets, daily range): BP systolic 111–126; BP diastolic 59–75; PULSE 66–84; RESP 16–66; TEMP 36.2–36.8; O2SAT 93–98
--- NOTE | 2022-07-05 | PATH_ITS ---
[facility] Accession Number: [id number] No. of containers..01 Tissue . 01 Material submitted: . gallbladder - GALLBLADDER . 01 Diagnosis: Gallbladder, Cholecystectomy: Chronic cholecystitis and cholelithiasis. MRV 07/09/2022 1234 Local . 01 Electronically signed: . Taylor Pitt MD, Pathologist NPI- [id number] . 01 Gross description: . The specimen is received in formalin labeled with the patient's name, , and gallbladder, and consists of an intact gallbladder (11.2 x 3.8 x 2.5 cm) with cortés-torrez serosa and a roughened unremarkable hepatic surface. The cystic duct is received closed with a clamp, is inked blue, and a torrez lymph node candidate is identified measuring 1.0 cm in greatest dimension. The lumen contains green-brown mucoid bile and multiple brown roughened calculi measuring up to 2.2 cm in greatest dimension. The mucosa is torrez and diffusely denuded with areas of trabeculation identified adjacent to the aforementioned calculi. No pinpoint yellow areas of discoloration, polyps, or lesions are identified, and the madrigal average 0.3 cm thick. Groundskeeper sections to include the surgical margin, one-half of the bisected lymph node candidate, and full-thickness sections are submitted in cassettes A1-A2. ([id number]) /MRV 07/08/2022 1613 Local . 01 Pathologist provided ICD-10: K80.10 . 01 CPT . 503940 Specimen Comment: A courtesy copy of this report has been sent to [phone] Performed at: [address] [address], [place], [place] [id number] MD Ilya Chaney MD Phone: [phone]
[2022-07-05] MEDS: OXYCODONE IR 5 MG TABLET PO ×2 (03:06→08:40)
--- NOTE | 2022-07-05 04:25 | PC.NURSE ---
Pt is AxOx4, independent and cooperative. VSS, pt c/o pain on abd and recieved PRN Ibuprofen x1, Oxy 5mg x1 with good effect. Pt has LR is running 100 ml/hr and pt is NPO since 2099. No other changes. No nausea or vomiting overnight. Continue monitor.
[2022-07-05] MEDS: PANTOPRAZOLE DR 20 MG TABLET PO (05:59)
[2022-07-05] MEDS: IBUPROFEN 600 MG TABLET PO (06:00)
[2022-07-05] MEDS: HEPARIN 5,000 UNIT/ML VIAL 5000 UNIT SUBCUT (08:36)
[2022-07-05] MEDS: LACTATED RINGERS 1,000 ML 100 ML IV ×3 (08:39→14:30)
[2022-07-05] MEDS: KETOROLAC 30 MG/ML VIAL 15 MG IV (11:30)
--- NOTE | 2022-07-05 11:53 | PM.HP.1 ---
History of Present Illness History of Present Illness Date Patient Seen: 07/05/22 Time Patient Seen: 11:56 Chief complaint: chest pain, here last night, nause Narrative: Epigastric pain with radiation to the back. Normal cardiac workup. US confirms acute faustino with impacted stone. Pain now more RUQ, labs reasonably normal. No prior attacks of this nature. Narcotics makes pain better. Patient History Family & Social History Social History: household members significant other Prior Living Arrangements House Safety & Behavioral: Feels Safe in Current Yes Environment Been Physically Hurt or No Threatened By a Person Tobacco & Substance use: Smoking Status Never smoker alcohol intake current alcohol intake frequency a few times a week Substance Use Type does not use Meds Home Medications and Allergies Home Medications Medication Instructions Recorded Confirmed Type cholecalciferol (vitamin D3) 50 50 mcg PO DAILY 07/04/22 07/04/22 History mcg (2,000 unit) capsule (Vitamin D3) progesterone micronized 200 mg 200 mg BEDTIME 07/04/22 07/04/22 History capsule semaglutide (weight loss) 0.25 0.2 mg SUBCUT QWEEK 07/04/22 07/04/22 History mg/0.5 mL subcutaneous pen injector Allergies Allergy/AdvReac Type Severity Reaction Status Date / Time butorphanol [From Stadol] Allergy Unknown Verified 07/05/22 11:06 diazepam [From Valium] Allergy Unknown Verified 07/05/22 11:06 Review of Systems Review of Systems ROS: Yes All systems reviewed with the patient and are negative except as otherwise documented Exam Vital Signs (past 8 hours): - 07/05/22 08:40 07/05/22 07:00 07/05/22 07:00 Temperature 98.2 F 98.2 F Pulse Rate 66 Respiratory Rate 66 H Blood Pressure 126/74 Pulse Oximetry 96 96 Oxygen Delivery Method Room Air Oxygen Flow Rate 0 0 Oxygen Delivery Method Room Air Oxygen Flow Rate 0 Const General: cooperative and healthy appearing [facility] Head: normocephalic and atraumatic Ears: hearing grossly normal bilaterally Eyes General: appearance normal, both eyes and all related structures Sclera: sclerae normal Neck Neck: trachea midline Chest Chest: normal inspection of the chest Resp Effort & Inspection: normal respiratory effort and able to speak in complete sentences Cardio Rate: regular rate Rhythm: regular rhythm GI Inspection: normal to inspection Palpation: soft and tender (RUQ) Skin General: no rashes or lesions noted Neuro General: patient alert, patient awake and patient oriented x3 Cognition: normal cognition Extrem General: normal to inspection Psych Appearance: grossly normal Mental Status: mental status grossly normal Objective Labs Result Diagrams: 07/04/22 13:41 07/04/22 13:41 Labs: Laboratory Results - last 24 hr 07/04/22 07/04/22 07/04/22 13:41 13:41 13:41 WBC 10.8 RBC 4.36 Hgb 13.2 Hct 39.2 MCV 89.9 MCH 30.2 MCHC 33.6 RDW 13.8 Plt Count 321 Neut % (Auto) 73.6 Lymph % (Auto) 18.9 L Harper % (Auto) 6.9 Eos % (Auto) 0.1 L Baso % (Auto) 0.5 Neut # (Auto) 7900 H Lymph # (Auto) 2000 Harper # (Auto) 700 Eos # (Auto) 0 Baso # (Auto) 100 PT 12.7 INR 1.1 APTT 31 Sodium 136 L Potassium 4.2 Chloride 102 Carbon Dioxide 24 BUN 9 Creatinine 0.74 Estimated GFR > 60 BUN/Creatinine Ratio 12.2 Glucose 92 Calcium 8.1 L Magnesium 2.2 Total Bilirubin 0.5 AST 22 ALT 22 Alkaline Phosphatase 81 Total Creatine Kinase 40 CK-MB (CK-2) TNP CK-MB (CK-2) Rel Index TNP Troponin I < 0.012 Total Protein 7.8 Albumin 4.2 Globulin 3.6 Albumin/Globulin Ratio 1.2 Lipase 65 Assessment & Plan Assessment & Plan narrative: acute faustino Plan: OR for lap faustino. Time Spent With Patient Critical Care time: I spent a total of [] minutes of critical care time on this patient's care today; this time is exclusive of procedural time.
--- NOTE | 2022-07-05 12:30 | CM.DANOTE ---
DCP: Case received, EMR reviewed and met with patient. Spouse, Rainer, was also at bedside. Introduced self and role. Completed DCP assessment based upon information currently available. Patient is a 56 year old female who admitted yesterday evening to the care of the hospitalist yvette. PCP: Miguel Antonio (her provider left, unsure who she is assigned to). Payer: confirmed: [employer]. Patient came to the hospital via private vehicle for chest pain, which then became nausea. Patient had an ultrasound which noted cholecystitis. Patient is scheduled for surgery today. Met with patient , spouse in the room. She was sitting up in bed, alert and oriented. Confirmed that her and spouse Rainer, here in [place]. Patient is independent. She works at [employer], commutes there once a week. Asked her about primary providers, and she indicated that she is established with Miguel Antonio, but her provider left, and she is not sure who took over. She also indicated that she is changing her [employer] Uniform to the classic plan so she can see local providers in this area. She did state that she has an appointment here near the hospital with a new BUZZSAW OPERATOR HELPER, but can't remember the name. P: DCP to continue to follow. Plan is home when stable, patient could possibly discharge after surgery today if stable. Brianna Holcomb RN/Precision Agriculture Technician Discharge Planning/Care Management Advanced directive, confirm from FAMILY Start: 07/04/22 21:07 Freq: Q24H Status: Active Protocol: Document 07/04/22 21:07 MW (Rec: 07/04/22 21:08 MW [id number]) Advance Directive, confirm on record Time 21:08 Person contacted pt Copy received No CM Discharge Assessment Start: 07/05/22 12:28 Freq: Status: Active Protocol: Document 07/05/22 12:28 (Rec: 07/05/22 12:30 [id number]) Discharge Planning Assessment Assigned Ceramics Engineer Brianna Holcomb RN/Precision Agriculture Technician Advance Directives? Yes Advance Directives on File No History Provided By Patient,Medical Record Prior Living Arrangements House Household Members significant other Type of transporation used prior to Drives own vehicle admit Independent with ADL's Yes Is patient alert and oriented? Yes Caregiver for Another No Barriers to Discharge No Discharge Plan Home Transportation Arrangement Spouse Referrals Initiated None needed Whiteboard Updated in Patient Room with Yes name and ext. # of Ceramics Engineer Review Status In Process Next Review Type Continued Stay Review
[2022-07-05] MEDS: CEFAZOLIN 2 GM/100 ML PREMIX 100 ML IV (13:00)
[2022-07-05] MEDS: BUPIVACAINE 0.5% W/ EPI (PF) 30 ML VIAL INJ (13:16)
--- NOTE | 2022-07-05 13:24 | SUR.OPER ---
Supine on padded OR bed, head on pillow, arms secured on padded arm boards at <90 degrees abduction, legs uncrossed, safety belt at thigh, tape over blanket over lower legs.
--- NOTE | 2022-07-05 14:00 | PM.OP.1 ---
Operative Date/Time/Diagnoses Date of procedure: 07/05/22 Time of procedure: 14:00 Pre-op diagnosis: Acute cholecystitis Post-op diagnosis: same Procedure & Clinicians Procedure: Laparoscopic cholecystectomy Same procedure as scheduled: Yes Indications: Acute cholecystitis Surgeon: Silva Fermin Click Yes if Unassisted: Yes Anesthesia Type: General and Local Operative Notes Findings: Acute cholecystitis Closure Type: primary Specimen(s): other (Gallbladder) Estimated Blood Loss (mL): 10 Blood products transfused: none Procedure in detail: Preop diagnosis: Acute cholecystitis Postop diagnosis: Same Operative procedure: Laparoscopic cholecystectomy Surgeon: Vonda Fermin MD Anesthetic: General with ET tube intubation with local Findings: Acute cholecystitis Procedure: Patient placed in a supine position. Prepped and draped in sterile fashion to expose her abdomen. Infraumbilical port site was placed using open technique a 12 mm port. Insufflation began all other ports were placed under direct vision including a 5 mm port in the midepigastrium and 2 5 mm ports in the right lateral abdomen. Gallbladder was decompressed and then grasped and pushed cephalad for exposure. Cystic duct was identified, clipped once distally twice proximally and transected. Cystic artery was treated in similar fashion. Gallbladder is removed from the fossa bed electrocautery and blunt dissection. We had good hemostasis at the end the procedure. There was spillage of bile into the abdomen end time was spent to get a clear return on suction irrigation. All ports removed began closure once the gallbladder had been placed into an Endo-Catch bag and pulled through the infraumbilical port site. Closure consisted of interrupted 0 Vicryl for fascial closure. Skin was closed with a running 4-0 Vicryl. Steri-Strips and sterile dressings were placed. Patient was awakened, extubated, taken to recovery room in stable condition. Needle, instrument, sponge counts were correct. Blood loss: 10 mL Specimen: Gallbladder Complications: none Post-operative Condition: stable Disposition: PACU
--- NOTE | 2022-07-05 14:06 | SUR.PHASEI ---
Received to PACU after general anesthesia. Airway patent, self maintained. Report from Darrick Hughes and Dr Jefferson.
--- NOTE | 2022-07-05 14:21 | SUR.PHASEI ---
Started on incentive spirometry. Goal = 2500cc. Pt acheived 1000cc.
--- NOTE | 2022-07-05 14:28 | SUR.PHASEI ---
Pt placed into holding. Awaiting RN to call back for report.
--- NOTE | 2022-07-05 14:39 | SUR.PHASEI ---
Transferred to room 218. Received in room by ONOFRE Byers.
--- NOTE | 2022-07-05 19:41 | PC.NURSE ---
Pt A&Ox4, pain controlled, nausea controlled at discharge. Pt and spouse verbalized understanding of D/C instructions and when to call the surgeon's office and when to go to the closest ED if needed. Pt's clothing, jewelry, electronics including cell phone all sent home with the pt and her spouse. Pt wheeled out to the POV by staff in a WC. All questions answered prior to D/C.
== END 2022-07-05 19:15 | disposition home or self-care (01) ==
LOC: ED 19:33 → AC 19:47
PROVIDERS: Emergency Medicine; Admitting Provider Surgery; Emergency Provider Emergency Medicine; Visit Provider Surgery
PROC: 0FT44ZZ Resection of Gallbladder, Percutaneous Endoscopic Approach (ICD-10-PCS; CPT 47562; principal; 2022-07-05 13:00)
DX: K80.00 Calculus of gallbladder with acute cholecystitis without obstruction (principal); R07.9 Chest pain, unspecified; Z20.822 Contact with and (suspected) exposure to COVID-19
CPT/HCPCS: 47562; 0241U; 36415; 71045; 71275; 74174; 76705; 80053; 82550; 83690; 83735; 83880; 84484; 85025; 85379; 85610; 85730; 93005; 93010; 96361; 96372; 96374; 96375; 96376; 99221; 99284; 99285; G0378; C9113; J0330; J0690; J1100; J1644; J1885; J2270; J2405; J2704; J3010

== ENCOUNTER 2023-05-19 16:34 | Emergency (ER) | payer OTHER, SELFPAY ==
[2022-07-04 20:57] VITALS: BMI 31.9
[2023-05-19 16:40] VITALS: BP 131/63; PULSE 67; RESP 18; TEMP 36.6; O2SAT 100; BMI 27.8
--- NOTE | 2023-05-19 16:49 | DI.US.S_ITS ---
PROCEDURE: US PELVIC COMPLETE INDICATIONS: POSTMENOPAUSAL BLEEDING TECHNIQUE: Real-time scanning was performed of the pelvic organs, with image documentation. Additional endovaginal scanning was necessary due to incomplete visualization of the adnexal and endometrial structures by transabdominal scanning. COMPARISON: None. FINDINGS: Uterus: Uterus is anteverted and normal in size at 6.3 x 4.5 x 5.2 cm. There is a left anterior subserosal focus of heterogeneous echogenicity measuring 1.2 x 1.3 x 1.0 cm. A right anterior subserosal focus measuring 0.8 x 0.9 x 0.7 cm is also present. The endometrium measures 3 mm combined thickness. Ovaries: The right ovary measures 2.5 x 1.1 x 1.3 cm, with a calculated ovarian volume of 1.7 cc. The left ovary measures 2.2 x 1.4 x 1.1 cm, with a calculated ovarian volume of 1.7 cc. The ovaries have a normal sonographic appearance. Less than 12 follicles can be seen in each ovary. No adnexal masses are seen. Other: No pathologic free abdominal or pelvic fluid. IMPRESSION: Foci of heterogeneous echogenicity within the uterus suggestive of fibroids. We strive to produce accurate, complete, and clear reports of imaging services. To assist us in improving patient care, this report was composed using standard report templates and voice recognition software. Therefore, it may contain abnormal punctuation, insertions and/or omissions. Occasional wrong-word or sound-alike substitutions may occur. Though we review the report and make efforts to correct it, we do recommend that the report be read carefully in proper context to recognize any text inaccuracies. Dictated by: Juliet Farris M.D. on 05/19/2023 at 18:12 Approved by: Juliet Farris M.D. on 05/19/2023 at 18:13
--- NOTE | 2023-05-19 17:14 | ED.FEMALEGU ---
HPI - Female Genitourinary General Chief complaint: Vaginal Bleeding Stated complaint: sent br MD rosen for vag bleeding Time Seen by Provider: 05/19/23 16:49 Source: patient Mode of arrival: Ambulatory History of Present Illness HPI Narrative: 57-year-old female presents for 2 days of vaginal bleeding after menopause. Patient states that she felt a gush from between her legs yesterday and was surprised to discover that it was blood as she has been through menopause already. She states that she has never had an abnormal Pap smear, her last Pap smear was 2 years ago and reported to be normal. Denies history of STIs. Of note, patient does state that she takes testosterone and estrogen hormone pellets as well as oral progesterone for sexual dysfunction. She has been on these medications since July of this year. Related Data Home Medications Medication Instructions Recorded Confirmed cholecalciferol (vitamin D3) 50 50 mcg PO DAILY 07/04/22 07/18/22 mcg (2,000 unit) capsule (Vitamin D3) progesterone micronized 200 mg 200 mg BEDTIME 07/04/22 07/18/22 capsule semaglutide (weight loss) 0.25 0.2 mg SUBCUT QWEEK 07/04/22 07/18/22 mg/0.5 mL subcutaneous pen injector DIM PO 01/16/23 01/16/23 Estrogen IM 01/16/23 01/16/23 Testosterone Pellets IM 01/16/23 01/16/23 rizatriptan 10 mg disintegrating 10 mg PO migraine occassional 01/16/23 01/16/23 tablet Previous Rx's Medication Instructions Recorded ibuprofen 600 mg tablet 600 mg PO Q6H PRN Fever/Mild Pain 07/05/22 (1-3) #30 tabs Allergies Allergy/AdvReac Type Severity Reaction Status Date / Time butorphanol [From Stadol] Allergy Severe Hallucinati Verified 01/16/23 14:29 ng diazepam [From Valium] AdvReac Intermediate Verified 01/16/23 14:29 Review of Systems Review of Systems Narrative: Negative except as noted above Patient History Medical History (Updated 05/20/23 @ 16:56 by Vickie Rosen DO) Anxiety Depression Venous (peripheral) insufficiency Cholelithiasis alcohol intake frequency: a few times a week Substance Use Type: does not use Exam Initial Vital Signs Initial Vital Signs: Vital Signs Temperature 97.9 F 05/19/23 16:40 Pulse Rate 67 05/19/23 16:40 Respiratory Rate 18 05/19/23 16:40 Blood Pressure 131/63 05/19/23 16:40 Pulse Oximetry 100 05/19/23 16:40 Oxygen Delivery Method Room Air 05/19/23 16:40 Const: Awake, alert, no acute distress, nontoxic appearing Eyes: PERRL, EOMI, conjunctiva normal ENT: Atraumatic, dentition normal, mucous membranes moist Cardiac: regular rate, regular rhythm RESP: unlabored, clear bilaterally, no wheezing GI: Atraumatic, soft, nontender, nondistended, no rebound, no guarding : Resource Conservation Specialist present, external genitalia normal, scant blood in vaginal vault, cervix normal, no obvious lesions MSK: Atraumatic, full range of motion, pulses equal Skin: Warm, Dry, intact, no rashes Neuro: AO x3, CN II-XII grossly intact, moves all extremities Psych: affect normal, mood normal, not suicidal, not homicidal Course Orders Ordered: ED Orders 05/19/23 16:49 US pelvic complete Stat CBC Auto Diff [Complete Blood Count AUTO DIFF] Stat CMP [Comprehensive Metabolic Panel] Stat Vital Signs Vital signs: Vital Signs - 8 hr 05/19/23 16:40 Temperature 97.9 F Pulse Rate 67 Respiratory Rate 18 Blood Pressure 131/63 Pulse Oximetry 100 Oxygen Delivery Method Room Air MDM - Female Genitourinary Differential Diagnosis Differential diagnosis: Likely urinary tract infection, cervicitis and dysmenorrhea Lab Data 05/19/23 17:06 05/19/23 17:06 Labs: Lab Results 05/19/23 Range/Units 17:06 WBC 6.7 (4.5-11.0) X10^3/uL RBC 4.52 (4.0-5.2) X10^6/uL Hgb 13.9 (12.0-16.0) g/dL Hct 41.2 (36-46) % MCV 91.0 (80-100) fL MCH 30.6 (26-34) PG MCHC 33.7 (30-36) % RDW 13.9 (11.6-14.8) % Plt Count 302 (150-400) X10^3/uL Neut % (Auto) Not Reportable Lymph % (Auto) Not Reportable Trinity % (Auto) Not Reportable Eos % (Auto) Not Reportable Baso % (Auto) Not Reportable Lymph # (Auto) Not Reportable Trinity # (Auto) Not Reportable Baso # (Auto) Not Reportable Total Counted 100 Seg Neutrophils % 50.0 (38-70) % Band Neutrophils % 3.0 (3-7) % Lymphocytes % (Manual) 41.0 (25-45) % Monocytes % (Manual) 2.0 (2-11) % Eosinophils % (Manual) 1.0 L (2-4) % Metamyelocytes % 1.0 H (-0) % Myelocytes % 1.0 H (-0) % Blast Cells % 1.0 H (-0) % Neutrophils # (Manual) 3551 (7917-4723) /uL Platelet Estimate Adequate on smear RBC Morphology See below Sodium 137 (137-145) mmol/L Potassium 3.6 (3.4-5.1) mmol/L Chloride 101 (98-107) mmol/L Carbon Dioxide 28 (22-32) mmol/L BUN 14 (7-17) mg/dL Creatinine 0.72 (0.52-1.04) mg/dL Estimated GFR > 60 (>60) mL/min BUN/Creatinine Ratio 19.4 (6-22) Glucose 88 (70-100) mg/dL Calcium 9.3 (8.4-10.2) mg/dL Total Bilirubin 0.4 (0.2-1.3) mg/dL AST 26 (14-36) IU/L ALT 24 (<35) IU/L Alkaline Phosphatase 59 (38-126) U/L Total Protein 8.2 (6.3-8.2) g/dL Albumin 4.4 (3.5-5.0) g/dL Globulin 3.8 (1.7-4.1) g/dL Albumin/Globulin Ratio 1.2 (1.0-2.8) MDM Narrative Medical decision making narrative: Well-appearing patient with postmenopausal bleeding. She does take multiple hormone supplements, this could be contributing to her bleeding. No abnormalities on pelvic exam. Laboratory work is reviewed, she is not anemic, there is no elevated white blood cell count. Transvaginal ultrasound shows 3 mm endometrial thickness. Patient was informed of all lab and imaging results. She was instructed to follow up with OBGYN to rule out endometrial cancer. ED return precautions discussed at bedside. Patient expressed understanding of the plan and is in agreement at this time. All questions answered at the time of discharge. Discharge Plan Departure Patient Disposition: Home Clinical Impression: Abnormal vaginal bleeding in postmenopausal patient Instructions: DI for Vaginal Bleeding Prescriptions: No Action rizatriptan 10 mg tablet,disintegrating 10 mg PO Testosterone Pellets 50 mg IM Estrogen 12.5 mg IM DIM PO progesterone micronized 200 mg capsule 200 mg BEDTIME cholecalciferol (vitamin D3) [Vitamin D3] 50 mcg (2,000 unit) Capsule 50 mcg PO DAILY semaglutide (weight loss) 0.25 mg/0.5 mL Pen Injector 0.2 mg SUBCUT QWEEK Patient Comments: PT WILLING TO SKIP THIS WEEK'S DOSE Rx Instructions: administer weeks 1 through 4 of therapy ibuprofen 600 mg Tablet 600 mg PO Q6H PRN (Reason: Fever/Mild Pain (1-3)) Qty: 30 0RF Referrals: Vickie Rosen DO [Primary Care Provider] - Aleksandr López MD [Physician] - Stand Alone Forms: Patient Portal/API
[2023-05-19 17:25] LABS: Hematocrit 41.2 % (36-46); Hemoglobin 13.9 g/dL (12.0-16.0); Mean Corpuscular HGB Conc 33.7 % (30-36); Mean Corpuscular Hemoglobin 30.6 PG (26-34); Platelet Count 302 X10^3/uL (150-400); Red Blood Cell Count 4.52 X10^6/uL (4.0-5.2); Red Cell Distribution Width 13.9 % (11.6-14.8); White Blood Cell Count 6.7 X10^3/uL (4.5-11.0)
[2023-05-19 17:27] LABS: Add Manual Diff / Slide Review YES
[2023-05-19 17:36] LABS: Alanine Aminotransferase 24 IU/L (<35); Albumin 4.4 g/dL (3.5-5.0); Albumin Globulin Ratio 1.2 (1.0-2.8); Alkaline Phosphatase 59 U/L (38-126); Aspartate Aminotransferase 26 IU/L (14-36); BUN Creatinine Ratio 19.4 (6-22); Bilirubin Total 0.4 mg/dL (0.2-1.3); Blood Urea Nitrogen 14 mg/dL (7-17); Calcium 9.3 mg/dL (8.4-10.2); Carbon Dioxide 28 mmol/L (22-32); Chloride 101 mmol/L (98-107); Estimated Glomerular Filt Rate > 60 mL/min (>60); Globulin 3.8 g/dL (1.7-4.1); Glucose 88 mg/dL (70-100); HEMOLYSIS < 15 (0-50); Potassium 3.6 mmol/L (3.4-5.1); Sodium 137 mmol/L (137-145); Total Protein 8.2 g/dL (6.3-8.2)
[2023-05-19 17:48] LABS: Neutrophils Absolute Manual 3551 /uL (3000-5900); Platelet Estimate Adequate on smear; Total Cells Counted 100
[2023-05-19 18:23] VITALS: BP 125/71; PULSE 62; RESP 18; O2SAT 98
== END 2023-05-19 18:29 | disposition home or self-care (01) ==
PROVIDERS: Emergency Provider Emergency Medicine; PCP Family Medicine
DX: N95.0 Postmenopausal bleeding (principal)
CPT/HCPCS: 76830; 76856; 80053; 85007; 85025; 99281; 99283